=== PATIENT | female | born 1960 | race Caucasian/White ===

== ENCOUNTER 2020-06-07 02:53 | Emergency (ER) | payer SELFPAY ==
[~2020-06-07] VITALS: Ht 170.2 cm; Wt 82.0 kg
[2020-06-07 02:58] VITALS: BP 141/65
== END 2020-06-07 03:15 | disposition left against medical advice (07) ==
LOC: ER 02:53
DX: R53.1 Weakness (principal); Z53.21 Procedure and treatment not carried out due to patient leaving prior to being seen by health care provider